=== PATIENT | female | born 1950 | race Caucasian/White ===

== ENCOUNTER 2018-07-26 18:24 | Emergency (ER) | payer SELFPAY ==
[~2018-07-26] VITALS: Ht 157.5 cm; Wt 60.0 kg
[2018-07-27 04:49] VITALS: BP 115/78
== END 2018-07-27 04:52 | disposition home or self-care (01) ==
LOC: ER 18:24
DX: T51.0X1A Toxic effect of ethanol, accidental (unintentional), initial encounter (principal); F10.229 Alcohol dependence with intoxication, unspecified; M79.606 Pain in leg, unspecified; Y90.8 Blood alcohol level of 240 mg/100 ml or more; Y92.89 Other specified places as the place of occurrence of the external cause
CPT/HCPCS: 36415; 99283; G0482